=== PATIENT | female | born 1975 | race Caucasian/White ===

== ENCOUNTER 2021-06-04 13:12 | Emergency (ER) | payer BC ==
[2021-06-04 13:31] VITALS: BMI 20.9
[2021-06-04] MEDS ORDERED: CASIRIVIMAB/IMDEVIMAB 10 ML in SODIUM CHLORIDE 100 ML IVPB ONE (14:05)
[2021-06-04 14:56] LABS: BASO % 0.6 % (0-2.0); EOS % 0.6 % (0-4.5); HEMATOCRIT 41.1 % (32.4-45.2); HEMOGLOBIN 13.9 GM/dL (10.7-15.3); LYMPH % 13.3 % (8-40); MCH 30.8 pg (25.7-33.7); MCHC 33.8 g/dl (32.0-36.0); MEAN CELL VOLUME 91.3 fl (80-96); MEAN PLT VOLUME 9.3 fl (7.5-11.1); MONO % 13.8 % (3.8-10.2); NEUT % 71.7 % (42.8-82.8); PLATELET COUNT 187 10^3/uL (134-434); RBC 4.51 M/mm3 (3.60-5.2); RDW 12.9 % (11.6-15.6); WHITE BLOOD COUNT 3.5 K/mm3 (4.0-10.0)
[2021-06-04 15:13] LABS: CALCIUM 8.9 mg/dL (8.5-10.1)
[2021-06-04 15:18] LABS: CREATININE 0.8 mg/dL (0.55-1.3)
[2021-06-04 17:04] VITALS: BP 112/68; PULSE 107; TEMP 100
== END 2021-06-04 17:13 | disposition home or self-care (01) ==
LOC: JER 13:12
DX: U07.1 COVID-19 (principal)
CPT/HCPCS: 36415; 80048; 85025; 99284-25; M0240; Q0240